=== PATIENT | female | born 1950 | race Caucasian/White ===

== ENCOUNTER → 2018-06-28 | Outpatient (CLI) | payer OTHER | LOC: M RAD 08:45 | DX: K80.50 Calculus of bile duct without cholangitis or cholecystitis without obstruction (principal) | CPT/HCPCS: J2805 ==

== ENCOUNTER 2023-01-27 07:26 | Day surgery (SDC) | payer OTHER ==
[~2023-01-27] VITALS: Ht 157.5 cm; Wt 70.9 kg
[~2023-01-27 07:26] MED LIST: AMLO1TAB24 PO; BACT400T PO; BSS IRR 500ML/OMIDRIA 4ML IRR BAG (OR ONLY) As Ordered ONE; CEFUROXIME 1MG/0.1ML INTRACAMERAL INJ As Ordered ONE; COUM2.5T17 PO; FLEEENE4 PR; FURO20TA2 PO; INDO-16; LEVO25TA5 PO; LEVO50TA5 PO; LIDOCAINE 1% SDV 5ML VIAL As Ordered ONE; LIPI20TA PO; LORT5TAB PO; MAGN400T2 PO; METO1TAB32 PO; MILK120011 PO; MIRA3350 PO; MULTCAP PO; NITR0.4S14 PO; OMEG12002 PO; PROPARACAINE 0.5% OPHTH SOL 15ML OD ONE; ROPI0.253 PO; SENO8.6T5 PO; TYLE325T5 PO; VALS1TAB67 PO; VITMTA PO; omeprazole OR
[2023-01-27] MEDS: PHENYLEPHRINE 2.5% OPHTH SOL 2ML OD SCH ×2 (07:45→08:50)
[2023-01-27] MEDS: TROPICAMIDE 1% OPHTH SOLN 15ML OD SCH ×2 (07:45→08:50)
[2023-01-27] MEDS: OFLOXACIN 0.3 % (OCUFLOX) OPTH SOL 5ML OD SCH ×2 (07:46→08:50)
[2023-01-27] MEDS: CYCLOPENTOLATE 1% OPHTH SOLN 2ML BTL OD SCH ×2 (07:46→08:50)
[2023-01-27] MEDS ORDERED: MIDAZOLAM INJ 2MG/2ML VIAL As Ordered ONE (08:54)
[2023-01-27] MEDS ORDERED: LIDOCAINE 1% SDV 5ML VIAL SC PRN (08:55)
[2023-01-27] MEDS ORDERED: fentaNYL 100 MCG/2 ML INJECTION As Ordered ONE (09:01)
[2023-01-27] MEDS ORDERED: DUOVISC (0.50ML VISCOAT/0.85ML PROVISC) OPHTH KIT As Ordered ONE (09:09)
[2023-01-27] MEDS ORDERED: ACETYLCHOLINE OPHTH SOLN 1% 2ML (MIOCHOL-E) As Ordered ONE (09:18)
[2023-01-27 09:35] VITALS: BP 185/84; TEMP 97.2; O2SAT 97
== END 2023-01-27 10:17 | disposition home or self-care (01) ==
LOC: M SDC 07:26
PROVIDERS: ATTEND Ophthalmology
DX: H25.11 Age-related nuclear cataract, right eye (principal); I10 Essential (primary) hypertension; E78.5 Hyperlipidemia, unspecified; E03.9 Hypothyroidism, unspecified; G25.81 Restless legs syndrome; F12.10 Cannabis abuse, uncomplicated; Z87.891 Personal history of nicotine dependence; I25.2 Old myocardial infarction; Z79.899 Other long term (current) drug therapy; Z98.61 Coronary angioplasty status
CPT/HCPCS: 66984; 92015; J0697; J1097; J2250; J3010; V2632

== ENCOUNTER 2023-08-04 08:05 | Day surgery (SDC) | payer OTHER ==
[~2023-08-04] VITALS: Ht 157.5 cm; Wt 69.3 kg
[~2023-08-04 08:05] MED LIST changes: -BSS IRR 500ML/OMIDRIA 4ML IRR BAG (OR ONLY) As Ordered ONE; -CEFUROXIME 1MG/0.1ML INTRACAMERAL INJ As Ordered ONE; +CYCLOPENTOLATE 1% OPHTH SOLN 2ML BTL OS SCH; -LIDOCAINE 1% SDV 5ML VIAL As Ordered ONE; +OFLOXACIN 0.3 % (OCUFLOX) OPTH SOL 5ML OS SCH; +PHENYLEPHRINE 2.5% OPHTH SOL 2ML OS SCH; -PROPARACAINE 0.5% OPHTH SOL 15ML OD ONE; +PROPARACAINE 0.5% OPHTH SOL 15ML OS ONE; -ROPI0.253 PO; +ROPI5TAB19 PO; +TROPICAMIDE 1% OPHTH SOLN 15ML OS SCH
[2023-08-04] MEDS ORDERED: CEFUROXIME 1MG/0.1ML INTRACAMERAL INJ As Ordered ONE (09:33)
[2023-08-04] MEDS ORDERED: fentaNYL 100 MCG/2 ML INJECTION As Ordered ONE (09:54)
[2023-08-04] MEDS ORDERED: MIDAZOLAM INJ 2MG/2ML VIAL As Ordered ONE (09:54)
[2023-08-04] MEDS ORDERED: BSS IRR 500ML/OMIDRIA 4ML IRR BAG (OR ONLY) As Ordered ONE (10:17)
[2023-08-04 10:18] VITALS: BP 166/77; TEMP 96.5; O2SAT 98
== END 2023-08-04 10:40 | disposition home or self-care (01) ==
LOC: M SDC 08:05
PROVIDERS: ATTEND Ophthalmology
DX: H25.12 Age-related nuclear cataract, left eye (principal); I25.2 Old myocardial infarction; Z95.5 Presence of coronary angioplasty implant and graft; I10 Essential (primary) hypertension; E78.00 Pure hypercholesterolemia, unspecified; E03.9 Hypothyroidism, unspecified; G25.81 Restless legs syndrome; Z79.899 Other long term (current) drug therapy; Z79.890 Hormone replacement therapy; Z87.891 Personal history of nicotine dependence
CPT/HCPCS: 66984; J0697; J1097; J2250; J3010; V2632